=== PATIENT | male | born 1965 | race Caucasian/White ===

== ENCOUNTER → 2016-09-01 | Outpatient (CLI) | payer OTHER ==
[~2016-09-01] MED LIST: AMIT75TA2 PO; ASPEC81 PO; ATOR-24 PO; CRG3125 PO; CYCL10TA6 PO; LISI20TA3 PO; METF-384 PO; PLV75 PO; TEMA15CA4 PO
[2016-09-01 14:20] LABS: BASO % 0.3 %; BASO ABS # 0.03 K/uL (0-0.2); COMPLETE YES; EOS % 1.5 %; HEMATOCRIT 47.1 % (42-52); IG% 0.3 %; LYMPH % 25.2 %; LYMPH ABS # 2.76 K/uL (1.2-3.4); MEAN CELL VOLUME 88.4 fL (80-100); MEAN CORPUSCULAR HEMOGLOBIN 29.6 pg (25-34); MEAN CORPUSCULAR HGB CONC 33.5 g/dl (32-36); MEAN PLATELET VOLUME 10.9 fL (7.4-10.4); MONO % 6.8 %; NEUT % 65.9 %; PLATELET COUNT 242 K/uL (130-400); RED BLOOD COUNT 5.33 M/uL (4.7-6.1); WHITE BLOOD COUNT 10.96 K/uL (4.8-10.8)
[2016-09-01 14:31] LABS: ESTIMATED AVERAGE GLUCOSE 148 mg/dl; HA1C FLAG Normal (Normal)
[2016-09-01 14:41] LABS: ALT/SGPT 33 U/L (12-78); AST/SGOT 15 U/L (15-37); BLOOD UREA NITROGEN 11 mg/dl (7-18); BUN/CREATININE RATIO 12.4 (10-20); CALCIUM 8.9 mg/dl (8.5-10.1); CARBON DIOXIDE 24 mmol/L (21-32); CHLORIDE 105 mmol/L (98-107); CREATININE 0.87 mg/dl (0.60-1.40); GLUCOSE 116 mg/dl (70-99); SODIUM 139 mmol/L (136-145)
[2016-09-01 14:44] LABS: ALB/GLOB RATIO 1.1 (0.9-2); ALKALINE PHOSPHATASE 62 U/L (45-117); CHOLESTEROL 152 mg/dl (0-200); CHOLESTEROL/HDL RATIO 3.6; HDL CHOLESTEROL 42 mg/dl; LDL CHOLESTEROL CALCULATED 41 mg/dl; TRIGLYCERIDES 346 mg/dl (0-150); VERY LOW DENSITY LIPOPROT CALC 69 mg/dl
== END | disposition home or self-care (01) ==
LOC: C.LABSPEC 14:13
PROVIDERS: ATTEND Family Medicine
DX: E11.9 Type 2 diabetes mellitus without complications (principal); I10 Essential (primary) hypertension; F41.9 Anxiety disorder, unspecified

== ENCOUNTER → 2017-03-01 | Outpatient (CLI) | payer OTHER ==
[2017-03-01 18:59] LABS: BASO % 0.2 %; BASO ABS # 0.02 K/uL (0-0.2); COMPLETE YES; EOS % 0.9 %; HEMATOCRIT 45.1 % (42-52); IG% 0.2 %; LYMPH % 24.9 %; LYMPH ABS # 2.39 K/uL (1.2-3.4); MEAN CELL VOLUME 90.4 fL (80-100); MEAN CORPUSCULAR HEMOGLOBIN 30.1 pg (25-34); MEAN CORPUSCULAR HGB CONC 33.3 g/dl (32-36); MEAN PLATELET VOLUME 10.7 fL (7.4-10.4); MONO % 7.9 %; NEUT % 65.9 %; PLATELET COUNT 228 K/uL (130-400); RED BLOOD COUNT 4.99 M/uL (4.7-6.1)
[2017-03-01 19:13] LABS: ALT/SGPT 37 U/L (12-78); AST/SGOT 22 U/L (15-37); BLOOD UREA NITROGEN 11 mg/dl (7-18); BUN/CREATININE RATIO 12.4 (10-20); CALCIUM 9.1 mg/dl (8.5-10.1); CARBON DIOXIDE 25 mmol/L (21-32); CHLORIDE 106 mmol/L (98-107); CHOLESTEROL 152 mg/dl (0-200); CREATININE 0.86 mg/dl (0.60-1.40); GLUCOSE 130 mg/dl (70-99); POTASSIUM 4.3 mmol/L (3.5-5.1); SODIUM 140 mmol/L (136-145); TRIGLYCERIDES 324 mg/dl (0-150); VERY LOW DENSITY LIPOPROT CALC 65 mg/dl
[2017-03-01 19:16] LABS: ALB/GLOB RATIO 0.9 (0.9-2); ALKALINE PHOSPHATASE 61 U/L (45-117); CHOLESTEROL/HDL RATIO 4.2; HDL CHOLESTEROL 36 mg/dl; LDL CHOLESTEROL CALCULATED 51 mg/dl
[2017-03-02 08:46] LABS: ESTIMATED AVERAGE GLUCOSE 140 mg/dl; HA1C FLAG Normal (Normal)
== END | disposition home or self-care (01) ==
LOC: C.LABSPEC 17:46
PROVIDERS: ATTEND Family Medicine
DX: E11.9 Type 2 diabetes mellitus without complications (principal); I10 Essential (primary) hypertension; F41.9 Anxiety disorder, unspecified

== ENCOUNTER → 2017-07-26 | Outpatient (CLI) | payer OTHER ==
[2017-07-26 18:08] LABS: BLOOD UREA NITROGEN 13 mg/dl (7-18); BUN/CREATININE RATIO 14.7 (10-20); CALCIUM 8.9 mg/dl (8.5-10.1); CARBON DIOXIDE 29 mmol/L (21-32); CHLORIDE 103 mmol/L (98-107); CREATININE 0.85 mg/dl (0.60-1.40); GLUCOSE 130 mg/dl (70-99); SODIUM 137 mmol/L (136-145)
== END | disposition home or self-care (01) ==
LOC: C.LABMFLN 13:25
PROVIDERS: ATTEND Physician Assistant
DX: I10 Essential (primary) hypertension (principal)